=== PATIENT | female | born 1990 | race Two or more races ===

== ENCOUNTER 2023-08-17 20:40 | Emergency (ER) | payer MEDICAID, OTHER ==
[~2023-08-17] VITALS: Ht 160 cm; Wt 43.1 kg
[2023-08-17 22:28] VITALS: BP 110/78; TEMP 98.2; O2SAT 98
== END 2023-08-17 22:28 | disposition left against medical advice (07) ==
LOC: ER 20:42
DX: S01.81XA Laceration without foreign body of other part of head, initial encounter (principal); R06.02 Shortness of breath; R10.30 Lower abdominal pain, unspecified; X58.XXXA Exposure to other specified factors, initial encounter; Y93.89 Activity, other specified; Y92.89 Other specified places as the place of occurrence of the external cause; Y99.8 Other external cause status